=== PATIENT | female | born 1955 | race Caucasian/White ===

== ENCOUNTER 2022-09-04 07:24 | Outpatient (CLI) | payer MEDICARE ==
[2022-09-04] MEDS ORDERED: Iopamidol-370 76% 500 ML 1 ML ONE (12:09)
== END 2022-09-04 07:25 | disposition home or self-care (01) ==
LOC: BICCT 07:24
PROVIDERS: ATTEND Family Medicine
DX: R10.31 Right lower quadrant pain (principal); N28.9 Disorder of kidney and ureter, unspecified; K44.9 Diaphragmatic hernia without obstruction or gangrene; I70.90 Unspecified atherosclerosis; K57.30 Diverticulosis of large intestine without perforation or abscess without bleeding; Z90.49 Acquired absence of other specified parts of digestive tract
CPT/HCPCS: 74178; 82565; Q9967

== ENCOUNTER 2024-07-24 16:51 | Outpatient (CLI) | payer MEDICARE | END 2024-07-24 16:52 | disposition home or self-care (01) | LOC: RAD 16:51 | PROVIDERS: ATTEND Nurse Practitioner Family | DX: R05.1 Acute cough (principal) | CPT/HCPCS: 71046 ==